=== PATIENT | male | born 1975 | race Caucasian/White ===

== ENCOUNTER 2020-05-07 13:33 | Emergency (ER) | payer BC, SELFPAY ==
--- NOTE | ~2020-05-07 | XR_ITS ---
EXAMINATION: XR elbow RT min 3V DATE: 05/07/2020 14:22 INDICATION: Right elbow erythema and swelling. TECHNIQUE: 4 views of right elbow were obtained. COMPARISON: None. FINDINGS: Bone alignment is normal. No fracture. Joint spaces are well maintained. There is soft tiss ue swelling overlying the olecranon, consistent with bursitis. IMPRESSION: 1. Olecranon bursitis. Reviewed, dictated and finalized at location A. IMPRESSION: 1. Olecranon bursitis.
--- NOTE | ~2020-05-07 | XR_ITS ---
EXAMINATION: XR knee RT min 4V DATE: 05/07/2020 14:22 INDICATION: Right knee pain and swelling. TECHNIQUE: 4 views of right knee were obtained. COMPARISON: None. FINDINGS: Bone alignment is normal. No fracture. Joint spaces are well maintained. There is no knee j oint effusion. There is mild prepatellar and superficial infrapatellar bursitis. IMPRESSION: 1. Mild prepatellar and superficial infrapatellar bursitis. Reviewed, dictated and finalized at location A.
[2020-05-07 13:41] VITALS: BP 161/99; PULSE 90; RESP 17; TEMP 37.6; O2SAT 99
--- NOTE | 2020-05-07 13:53 | ED.UPPEXIN ---
HPI - Extremity Injury (Upper) General Chief Complaint: Extremity Injury, Upper Stated Complaint: knee and arm injury Time Seen by Provider: 05/07/20 13:37 Source: patient Mode of arrival: ambulatory Limitations: no limitations History of Present Illness HPI narrative: This is a 44 year old male that presents to the ER for right knee and right elbow pain x 6 days. Reports he was hit with a tree branch and sustained lacerations to the face and right elbow. Reports he was updated on tetanus. Reports since the laceration sustained to his right elbow he started to note some redness around the area. Reports he started to note some pain with active ROM in the right knee. Reports yesterday it started to become swollen. Reports family history of gout. Denies fever. Related Data Home Medications Medication Instructions Recorded Confirmed amlodipine PO 05/07/20 lisinopril-hydrochlorothiazide tablet PO 05/07/20 Allergies Allergy/AdvReac Type Severity Reaction Status Date / Time No Known Allergies Allergy Unverified 05/06/13 23:10 Review of Systems Review of Systems: Narrative: CONSTITUTIONAL: Denies fever SKIN: Reports redness MUSCULOSKELETAL: Reports joint pain, and myalgia. All systems reviewed & are unremarkable except as noted in HPI and below PMFSH Past Medical History Medical History (Updated 05/07/20 @ 15:02 by Mee Scott PA-C) History of hypertension Family History Family History (Updated 05/07/20 @ 13:54 by Mee Scott PA-C) Other Gout Social History Social History (Updated 05/07/20 @ 14:08 by Mee Scott PA-C) Substance use: never Gender identity (if verbalized by the patient): Male Exam Narrative: Exam Narrative: GENERAL: Well-appearing, well-nourished, and in no acute distress. HEAD: Normocephalic, atraumatic. EYES: EOMI. CHEST: Clear to auscultation. No respiratory distress. No wheezes rales or rhonchi HEART: Regular rate and rhythm. No murmur heard. Normal peripheral pulses. EXTREMITIES: Normal range of motion. Mild swelling about the right knee, pain with active ROM in the knee. Mild redness to the right knee anteriorly, no fluctuance. Right elbow with mild erythema, no pain with active ROM in the elbow, no fluctuance. Normal peripheral pulses. Normal sensation SKIN: Warm, dry, no rash. NEURO: No focal deficits. Alert and oriented x3. PSYCH: Normal mood and affect Course Consultations Consultation #1: Spoke with Dr. Martell about patient and work-up. Patient will be started on Bactrim for possible septic bursitis. Will also be treated for possible gout flare Date: 05/07/20 Time: 15:15 Vital Signs Vital signs: Vital Signs Temperature 99.6 F 05/07/20 13:41 Pulse Rate 90 05/07/20 13:41 Respiratory Rate 17 05/07/20 13:41 Blood Pressure 161/99 H 05/07/20 13:41 Pulse Oximetry 99 05/07/20 13:41 Temperature 99.6 F 05/07/20 13:41 Pulse Rate 90 05/07/20 13:41 Respiratory Rate 17 05/07/20 13:41 Blood Pressure 161/99 H 05/07/20 13:41 Pulse Oximetry 99 05/07/20 13:41 MDM - Extremity Injury (Upper) MDM Narrative Medical decision making narrative: Patient presents to the emergency department for right elbow and right knee swelling and redness. Patient is afebrile and nontoxic-appearing. CBC is without leukocytosis. Inflammatory markers are elevated. Lactic acid is normal. Right elbow x-ray shows olecranon bursitis. Right knee x-ray shows prepatellar bursitis. Patient with mild redness and swelling to the areas. He has normal range of motion in the joints. Will be treated for possible gout flare and for possible septic bursitis. Patient will be started on colchicine, anti-inflammatories, and Bactrim. Spoke with Dr. Martell about patient work-up who agrees. Patient stable and felt appropriate for further outpatient evaluation. He was given warnings to return to the ER Lab Data Attestation: I reviewed the patient's lab resul
[2020-05-07 13:54] LABS: Basophils Percent Auto 0.6 % (0.2-1.2); Eosinophils Absolute Auto 0.2 K/mm3 (0-0.3); Eosinophils Percent Auto 3.2 % (0-4.4); Hematocrit 39.5 % (42.0-52.0); Hemoglobin 13.8 g/dL (14.0-18.0); Immature Granulocyte Absolute 0.02 K/mm3 (0.00-0.031); Immature Granulocyte Percent A 0.3 % (0-0.5); Lymphocytes Absolute Auto 1.24 K/mm3 (0.9-3.2); Lymphocytes Percent Auto 18.2 % (18.3-44.2); Mean Corpuscular HGB Conc 34.9 g/dl (32-36); Mean Corpuscular Hemoglobin 30.9 pg (26-34); Mean Corpuscular Volume 88.4 fl (80-100); Monocytes Absolute Auto 0.6 K/mm3 (0.1-0.6); Monocytes Percent Auto 8.5 % (2.6-8.5); Neutrophils Absolute Auto 4.7 K/mm3 (1.3-6.7); Neutrophils Percent Auto 69.2 % (45.5-73.1); Platelet Count Result 202 k/mm3 (150-375); Red Blood Count 4.47 M/mm3 (4.6-6.20); Red Cell Distribution Width 12.2 % (11.5-14.5); White Blood Count 6.8 K/mm3 (4.5-10.0)
[2020-05-07 14:06] LABS: Lactic Acid Reflex 1.7 mmol/L (0.7-2.1)
--- NOTE | 2020-05-07 14:13 | PC.NURSE ---
Pt to xray.
[2020-05-07 14:28] LABS: Anion Gap 7 mmol/L (8-16); Blood Urea Nitrogen 15 mg/dL (9-20); Calcium 9.2 mg/dL (8.4-10.2); Carbon Dioxide 31 mmol/L (22-30); Chloride 105 mmol/L (98-107); Estimated CRCL calculation 97 ml/min; Estimated Glomerular Filt Rate > 60; Glucose 138 mg/dL (75-110); Potassium 3.6 mmol/L (3.4-5.0); Sodium 143 mmol/L (137-145); Uric Acid 6.4 mg/dL (3.5-8.5)
[2020-05-07 14:29] LABS: Erythrocyte Sedimentation Rate 57 mm/hr (0-20)
[2020-05-07] MEDS: COLCHICINE 0.6 MG TABLET 1.2 MG PO (15:15)
[2020-05-07 15:54] VITALS: BP 142/89; PULSE 78; RESP 22; O2SAT 100
== END 2020-05-07 15:54 | disposition home or self-care (01) ==
PROVIDERS: Physician Assistant; Emergency Provider Emergency Medicine; PCP Family Medicine
DX: M70.41 Prepatellar bursitis, right knee (principal); M70.21 Olecranon bursitis, right elbow; I10 Essential (primary) hypertension
CPT/HCPCS: 36415; 73080; 73564; 80048; 83605; 84550; 85025; 85652; 86140; 87040; 99284; A9270

== ENCOUNTER → 2020-10-12 13:55 | Outpatient (CLI) | payer BC, SELFPAY ==
--- NOTE | ~2020-10-12 | XR_ITS ---
XR lumbar spine 2-3V 10/12/2020 14:16 Indication: Lumbar radiculopathy Procedure: 3 views lumbar spine Comparison: No prior studies for comparison. Findings: Mild dextrocurvature of the lumbar spine. Vertebral body heights are maintained. No acute f racture or traumatic malalignment. There is mild disc narrowing at L3-4. No evidence for spondylolist hesis. Pedicles intact. Impression: 1: Mild lumbar spondylosis. Reviewed, dictated and finalized at location A. Impression: 1: Mild lumbar spondylosis.
== END ==
PROVIDERS: Visit Provider Chiropractor
DX: M47.816 Spondylosis without myelopathy or radiculopathy, lumbar region (principal)
CPT/HCPCS: 72100

== ENCOUNTER → 2021-02-16 16:13 | Outpatient (CLI) | payer BC, SELFPAY ==
--- NOTE | ~2021-02-16 | XR_ITS ---
XR cervical spine min 6V DATE: 02/16/2021 16:32 INDICATION: Cervical and thoracic back pain TECHNIQUE: AP, open-mouth views. Flexion, extension and neutral lateral views. COMPARISON: None FINDINGS: C1 and C2 are normally aligned and the odontoid process is intact. There is slight dextroscoliosis of the cervical spine. No fracture or dislocation or locked facet or prevertebral soft tissue swelling. There is mild loss of interspace height and minimal spurring at C4-5. IMPRESSION: Mild degenerative disc disease at C4-5 Reviewed, dictated and finalized at location B.
--- NOTE | ~2021-02-16 | XR_ITS ---
XR thoracic spine 2V DATE: 02/16/2021 16:32 INDICATION: Thoracic back pain TECHNIQUE: Standing AP, lateral and swimmer views COMPARISON: None FINDINGS: Mild to moderate degenerative disease at C4-5. There is mild degenerative spurring of the t horacic spine. No fracture or dislocation or bone destruction is evident. The thoracic pedicles are i ntact. No paraspinal soft tissue thickening. IMPRESSION: Mild degenerative spurring of the thoracic spine Reviewed, dictated and finalized at location B.
== END ==
PROVIDERS: PCP Family Medicine; Visit Provider Chiropractor
DX: M54.6 Pain in thoracic spine (principal); M50.321 Other cervical disc degeneration at C4-C5 level
CPT/HCPCS: 72052; 72070

== ENCOUNTER 2024-09-08 17:13 | Outpatient (CLI) | payer BC, SELFPAY ==
--- OUTSIDE RECORDS SUMMARY | 2024-09-08 17:15 | XMS_ITS | Clinical Summary ---
Author Organization [facility] Address [address] [place] [address] Care Team Providers Care Marine Firer Name Role Phone Eliud Hoang MD Primary Care Provider [phone] Allergies No known active allergies Medications amLODIPine (NORVASC) 10 mg tabletIndicatio ns:hypertension Take 10 mg by mouth every morning Active lisinopril-hydr oCHLOROthiazide (ZESTORETIC) 20-12.5 mg per tabletIndicatio ns:hypertension Take 2 tablets by mouth every morning Active UNABLE TO FIND [employer] Magnesium 85mg and Potassium 42.5 mg per tablet. 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 Specialty Services [address] [place] [address] Miscellaneous, Not In File from Last 3 Months Surgical History Surgery Date Site/Laterality Comments WISDOM TOOTH EXTRACTION N/A Medical History Medical History Date Comments HTN (hypertension) Family History Medical History Relation Name Comments Prostate cancer Father's Brother 1 Family history of malignant neoplasm of prostate - (Added by TW Conv) Melanoma Father's Brother 2 Family hi story of malignant melanoma - (Added by FE Conv) Melanoma Other Family history of malignant melanoma - (Added by FE Conv) Anesthesia problems Neg Hx Relation Name Status Comments Father's Brother 1 Father's Brother 2 Other Social History Tobacco Use Types Packs/Day Years Used Date Smoking Tobacco: Never Passive Smoke Exposure: Never Smokeless Tobacco: Never Tobacco Cessation:Counseling Given: Not Answered AUDIT-C Answer Date Recorded Q1: How often do you have a drink containing alc ohol? 2-3 times a week 07/09/2022 Q2: How many drinks containi ng alcohol do you have on a typical day when you are drinking? 1 or 2 07/09/2022 Q3: How often do you have si x or more drinks on one occasion? 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 Gender Identity Not on file Sexual Orientation Not on file Obstetrics History Last Filed Vital Signs Vital Sign Reading Time Taken Comments Blood Pressure 140/69 07/09/2022 11:55 AM BI[employer]IESEL PLANT SUPERINTENDENT Pulse 86 07/09/2022 11:55 AM BIODIESEL PLANT SUPERINTENDENT Temperature 36.9 C (98.4 F) 07/09/2022 11:55 AM [employer]OD[employer]EL PLANT SUPERINTENDENT Respiratory Rate 42 07/09/2022 11:55 AM BIODIESEL PLANT SUPERINTENDENT Oxygen Saturation 89% 07/09/2022 11:55 AM BIODIESEL PLANT SUPERINTENDENT Inhaled Oxygen Concentration - - Weight 129.7 kg (286 lb) 07/09/2022 8:09 AM [employer]IESEL PLANT SUPERINTENDENT Height 182.9 cm (6') 07/09/2022 8:09 AM BI[employer]IESEL PLANT SUPERINTENDENT Body Mass Index 38.79 07/09/2022 8:09 AM [employer] SUPERINTENDENT Plan of Treatment Scheduled Procedures Name Priority Associated Diagnoses Date/Ti me COLONOSCOPY Screening for malignant neoplasm of colon Health Maintenance Due Date Last Done Comments Colon Cancer Screening-Colonoscopy 1977 Depression Screening 1977 Hepatitis C Screening 1977 DTaP/Tdap/Td Vaccine (1 - Tdap) 1988 Hepatitis B Screening 11/14/1995 Regular Well Visit/Exam 18-64 11/14/1995 Influenza Vaccine (#1) 2024 HPV Vaccines Aged Out No longer eligi ble based on patient's age to complete this topic Pneumococcal vaccine <65 Aged Out No longer eligible based on patient's age to complete this topic Insurance [employer] ACC[employer] CHOICE ANTHEM ACCESS CHOICE Care Teams Marine Firer Relationship Specialty Start Date End Date Eliud Hoang MD [address] [place] [address] KEVIN NUÑEZ [id number] PCP - General Family Medicine 05/14/22
--- OUTSIDE RECORDS SUMMARY | 2024-09-08 17:15 | XMS_ITS | Referral Summary ---
Author Organization [facility] Main [facility] s Address [address] [place] [address] Care Team Providers Care Safety Clothing And Equipment Developer Name Role Phone Eliud Hoang MD Primary Care Provider [phone] Encounters Date Type Department Care Team Description 06/24/2024 Telephone [facility] Specialty Services [facility] [place] [address] Miscellaneous, Not In File from Last 3 Months Allergies No known active allergies Medications amLODIPine [...] (07/03/2022): Added automatically from request for surgery [id number] Skin neoplasm 06/07/2015 Lentigo 06/07/2015 Social History Tobacco Use Types Packs/Day Years [...] on file Legal Sex Male 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 Gender Identity Not on file Sexual Orientation Not on file Last Filed Vital Signs Vital Sign Reading Time Taken Comments Blood Pressure 140/69 07/09/2022 11:55 AM COSTUMING SUPERVISOR Pulse 86 07/09/2022 11:55 AM COSTUMING SUPERVISOR Temperature 36.9 C (98.4 F) 07/09/2022 11:55 AM COSTUMING SUPERVISOR Respiratory Rate 42 07/09/2022 11:55 AM COSTUMING SUPERVISOR Oxygen Saturation 89% 07/09/2022 11:55 AM COSTUMING SUPERVISOR Inhaled Oxygen Concentration - - Weight 129.7 kg (286 lb) 07/09/2022 8:09 AM COSTUMING SUPERVISOR Height 182.9 cm (6') 07/09/2022 8:09 AM COSTUMING SUPERVISOR Body Mass Index 38.79 07/09/2022 8:09 AM COSTUMING SUPERVISOR Plan of Treatment Scheduled Procedures Name Priority Associated Diagnoses Date/Ti me COLONOSCOPY Screening for malignant neoplasm of colon Insurance [email or web address] ANTHEM ACCESS CHOICE Care Teams Safety Clothing And Equipment Developer Relationship Specialty Start Date End Date Eliud Hoang MD [address] [place] [id number] PCP - General Family Medicine 05/14/22
[2024-09-08 18:06] LABS: Hematocrit 42.6 % (42.0-52.0); Mean Corpuscular HGB Conc 35.2 g/dl (32-36); Mean Corpuscular Hemoglobin 30.4 pg (26-34); Mean Corpuscular Volume 86.2 fl (80-100); Mean Platelet Volume 9.8 fl (7.4-10.4); Platelet Count Result 322 k/mm3 (150-375); Red Blood Count 4.94 M/mm3 (4.6-6.20); Red Cell Distribution Width 12.4 % (11.5-14.5); White Blood Count 6.9 K/mm3 (4.5-10.0)
[2024-09-08 19:16] LABS: Hemoglobin A1C 5.2 % (<5.7)
== END 2024-09-08 17:14 | disposition home or self-care (01) ==
LOC: ANHLAB 17:13
PROVIDERS: PCP Family Medicine; Visit Provider Family Medicine
DX: R73.09 Other abnormal glucose (principal); I10 Essential (primary) hypertension; Z01.818 Encounter for other preprocedural examination
CPT/HCPCS: 36415; 83036; 85027